=== PATIENT | male | born 1965 | race Caucasian/White ===

== ENCOUNTER 2022-05-04 02:13 | Inpatient (IN) ==
[2022-05-04] MEDS ORDERED: methylPREDNISolone SOD SUC 125 MG/2 ML VIAL IV STA (02:34)
[2022-05-04] MEDS ORDERED: ALBUTEROL/IPRATROPIUM 3 ML NEB RESP TX STA (02:34)
[2022-05-04 02:44] LABS: Basophils % 0.3 % (0.0-0.8); Hematocrit 55.7 VOL% (42.0-52.0); Immature Granulocytes % 0.3 %; Immature Granulocytes Absolute 0.03 #; Lymphocytes # 1.5 10*3/uL (1.4-4.0); Lymphocytes % 17.1 % (21.2-54.2); Mean Corpuscular HGB Conc 34.1 GM/DL (32-36); Mean Corpuscular Volume 94.6 FL (87-102); Mean Platelet Volume 11.8 FL (9.6-12.0); Monocytes # 0.8 10*3/uL (0.11-0.8); Monocytes % 8.7 % (1.7-12.7); Neutrophils % 73.6 % (38.7-73.9); Platelet Count 177 T/CUMM (130-400); Red Blood Count 5.89 MC/CUMM (3.8-5.5); White Blood Count 8.6 T/CUMM (4-12)
[2022-05-04 02:51] LABS: Albumin 3.6 G/DL (3.4-5.0); Bilirubin,Total 1.8 MG/DL (0.20-1.00); Calcium 8.9 MG/DL (8.5-10.1); Osmolality,Calculated 277.8 MOS/KG (273-304); Potassium 4.5 MMOL/L (3.5-5.1); Total Protein 7.9 G/DL (6.4-8.2)
[2022-05-04 02:54] LABS: INR 1.2; PT Patient Result 12.6 SECS (10.1-12.1); Partial Thromboplastin Time 28.2 SECS (23.7-32.9)
[2022-05-04 02:55] LABS: Arterial Base Excess iSTAT -5 MMOL/L (-2.5-2.5); Arterial Bicarbonate iSTAT 18.7 MMOL/L (20-26); Arterial O2 Saturation iSTAT 91 % (95-100); Arterial PCO2 iSTAT 33 MM HG (35-48); Arterial PO2 iSTAT 64 MM HG (80-95); Arterial Total CO2 iSTAT 20 MMO/L (23-27); Arterial pH iSTAT 7.364 (7.35-7.45)
[2022-05-04] MEDS ORDERED: PIPERACILLIN/TAZOBACTAM 3,375 MG in SODIUM CHLORIDE 0.9% 100 ML IV STA (03:08)
[2022-05-04] MEDS ORDERED: SODIUM CHLORIDE 0.9% 1,000 ML IV STA ×2 (03:08→04:15)
[2022-05-04 03:09] LABS: Band Neutrophils 6 % (0-10); Lymphocytes 17 % (20-55); Total Cells Counted 100
[2022-05-04 03:11] LABS: Platelet Estimate Adequate
[2022-05-04] MEDS ORDERED: ONDANSETRON 4 MG/2 ML VIAL IV ONE (03:11)
[2022-05-04] MEDS ORDERED: MORPHINE 2 MG/1 ML SYRINGE IV STA (03:11)
[2022-05-04] MEDS ORDERED: GLUCAGON 1 MG VIAL IM PRN (03:37)
[2022-05-04] MEDS ORDERED: ACETAMINOPHEN 325 MG TABLET PO PRN (03:37)
[2022-05-04] MEDS ORDERED: ONDANSETRON 4 MG/2 ML VIAL IV PRN (03:37)
[2022-05-04] MEDS ORDERED: DEXTROSE 10% 250 ML BAG IV PRN (03:58)
[2022-05-04] MEDS ORDERED: CLORAZEPATE 3.75 MG TABLET PO PRN (03:59)
[2022-05-04] MEDS ORDERED: SODIUM CHLORIDE 0.9% 1,000 ML IV SCH (04:00)
[2022-05-04] MEDS ORDERED: SODIUM CHLORIDE 0.9% 500 ML IV STA (04:15)
[2022-05-04] MEDS: MORPHINE 2 MG/1 ML SYRINGE IV PRN ×2 (05:25→10:48)
[2022-05-04] MEDS ORDERED: PNEUMOCOCCAL VACCINE (23 VALENT) 0.5 ML VIAL IM ONE (05:31)
[2022-05-04] MEDS ORDERED: ALBUTEROL/IPRATROPIUM 3 ML NEB RESP TX SCH (07:00)
[2022-05-04] MEDS ORDERED: LORazepam 1 MG TABLET PO ONE (07:46)
[2022-05-04] MEDS ORDERED: PANTOPRAZOLE 40 MG TABLET PO SCH (09:00)
[2022-05-04] MEDS ORDERED: PIPERACILLIN/TAZOBACTAM 3,375 MG in SODIUM CHLORIDE 0.9% 100 ML IV SCH (11:00)
[2022-05-04] MEDS ORDERED: methylPREDNISolone SOD SUC 125 MG/2 ML VIAL IV SCH (11:00)
[2022-05-04] MEDS ORDERED: methylPREDNISolone SOD SUC 125 MG/2 ML VIAL IV ONE (13:20)
[2022-05-04] MEDS ORDERED: EPINEPHrine 1 MG/10 ML SYRINGE IV ONE (13:22)
[2022-05-04] MEDS ORDERED: ALBUTEROL 2.5 MG/3 ML NEB RESP TX ONE (13:22)
[2022-05-04] MEDS ORDERED: SODIUM BICARBONATE 50 MEQ/50 ML SYRINGE IV ONE (13:24)
[2022-05-04] MEDS ORDERED: VANCOMYCIN INJ 1,250 MG in SODIUM CHLORIDE 0.9% 250 ML IV PRN (13:29)
[2022-05-04] MEDS ORDERED: VANCOMYCIN INJ 1,500 MG in SODIUM CHLORIDE 0.9% 500 ML IV ONE (14:00)
[2022-05-04 14:22] VITALS: BP 97/14
[2022-05-05] MEDS ORDERED: GLYCOPYRROLATE 0.4 MG/2 ML VIAL IM ONE (07:00)
[2022-05-05] MEDS ORDERED: MEPERIDINE 50 MG/1 ML VIAL IM ONE (07:00)
[2022-05-05] MEDS ORDERED: PROMETHAZINE 25 MG/1 ML VIAL IM ONE (07:00)
[2022-05-05] MEDS ORDERED: LIDOCAINE 2% VISCOUS 100 ML BOTTLE SWISH/SPIT ONE (07:30)
[2022-05-05] MEDS ORDERED: LIDOCAINE 1% 20 ML VIAL MISC INJ ONE (07:30)
[2022-05-05] MEDS ORDERED: MIDAZOLAM 10 MG/2 ML VIAL IV ONE (07:30)
[2022-05-05] MEDS ORDERED: LIDOCAINE 2% 20 ML VIAL RESP TX ONE (07:30)
== END 2022-05-04 13:29 | disposition expired | DRG 871 ==
LOC: EDBD → EDUNIT# → N.ED 02:13 → N.3W 03:37 → N.CC 13:07
PROVIDERS: ADMIT Emergency Medicine; ATTEND Emergency Medicine